=== PATIENT | female | born 1990 | race Caucasian/White ===

== ENCOUNTER 2017-10-29 19:06 | Inpatient (IN) | payer OTHER ==
[2017-10-29] MEDS ORDERED: LACTATED RINGERS 1,000 ML ONE (19:09)
[2017-10-29] MEDS ORDERED: PITOCin/NS 20 UNIT/1000ML DRIP 20,000 MILLIUNITS/1,000 ML BAG IV ONE (19:09)
[2017-10-29] MEDS ORDERED: SUBLIMAZE IV ONE (19:47)
[2017-10-29] MEDS ORDERED: SUBLIMAZE ONE (19:48)
[2017-10-29] MEDS: LACTATED RINGERS 1,000 ML IV SCH ×2 (19:56→21:19)
[2017-10-29] MEDS ORDERED: PITOCin/NS 20 UNIT/1000ML DRIP 20 UNITS/1,000 ML BAG IV SCH ×2 (20:00→21:00)
[2017-10-29 20:18] LABS: Hematocrit 30.3 % (30.3-42.9); Hemoglobin 9.9 gm/dl (10.1-14.3); Mean Corpuscular HGB Conc 33 % (30-34); Mean Corpuscular Volume 75 fl (79-97); Platelet Count 146 K/mm3 (140-440); Red Blood Count 4.06 M/mm3 (3.65-5.03); Red Cell Distribution Width 14.9 % (13.2-15.2)
[2017-10-29 20:19] LABS: Mean Corpuscular Hemoglobin 24 pg (28-32)
[2017-10-29] MEDS ORDERED: MINERAL OIL PO PRN (20:19)
[2017-10-29] MEDS ORDERED: ZOFRAN IV PRN (20:19)
[2017-10-29] MEDS ORDERED: BRETHINE IVP PRN (20:19)
[2017-10-29] MEDS ORDERED: ePHEDrine SULFATE IV PRN ×2 (20:19→21:17)
[2017-10-29] MEDS ORDERED: NARCAN 0.4 MG/1 ML IV PRN (20:19)
[2017-10-29] MEDS ORDERED: POLYCILLIN/NS 2 GM/100 ML 2 GM/100 ML BAG IV ONE (20:19)
[2017-10-29] MEDS ORDERED: BRETHINE SUB-Q PRN (20:19)
[2017-10-29] MEDS ORDERED: XYLOCAINE 2% INFILTRATI ONE (20:19)
[2017-10-29] MEDS ORDERED: SUBLIMAZE IV PRN (20:19)
[2017-10-29] MEDS ORDERED: LACTATED RINGERS 1,000 ML IV SCH (21:00)
[2017-10-29] MEDS ORDERED: PITOCin/NS 30 UNIT/500ML 30 UNITS/500 ML BAG IV SCH (21:00)
[2017-10-29] MEDS ORDERED: NARCAN 2 MG/2 ML IV PRN (21:17)
--- NOTE | 2017-10-29 21:49 | Anesthesia Day of Surgery ---
Anesthesia Day of Surgery - Day of Surgery Patient Examined: Yes Patient H&P Reviewed: Yes Patient is NPO: Yes
--- NOTE | 2017-10-29 21:49 | Anesthesia Consultation ---
Anesthesia Consult and Med Hx Date of service: 10/29/17 - Airway Anesthetic Teeth Evaluation: Good ROM Head & Neck: Adequate Mental/Hyoid Distance: Adequate Mallampati Class: Class II Intubation Access Assessment: Probably Good - Pulmonary Exam CTA: Yes - Cardiac Exam Cardiac Exam: RRR - Pre-Operative Health Status ASA Pre-Surgery Classification: ASA2 Proposed Anesthetic Plan: Epidural, Spinal - Pulmonary Hx Smoking: No Hx Asthma: No COPD: No Hx Pneumonia: No - Cardiovascular System Hx Hypertension: No - Central Nervous System Hx Seizures: No Hx Psychiatric Problems: No - Endocrine Hx Renal Disease: No Hx End Stage Renal Disease: No Hx Hypothyroidism: No Hx Hyperthyroidism: No - Hematic Hx Anemia: No Hx Sickle Cell Disease: No - Other Systems Hx Alcohol Use: No
[2017-10-29] MEDS ORDERED: fentaNYL-BUPIV 2 MCG/ML-0.125% 200 MCG/100 ML BAG EPIDURAL SCH (22:00)
--- NOTE | 2017-10-30 00:11 | History and Physical Report ---
History of Present Illness Date of examination: 10/30/17 Chief complaint: My water broke History of present illness: Pt is a 27 year old Somali female primigravida LEVY 11/01/17 at 39w5d who presents with rupture of membranes,contractions and advanced cervical dilation of 4 cm (she was 1 cm yesterday in the office). She denies vaginal bleeding. She has had care at [facility] since 32 wks when she initiated care complicated by late entry to care, anemia on iron twice daily, and GERD. She is GBS negative. Past History Past Medical History: GERD Past Surgical History: no surgical history Family/Genetic History: none Social history: no significant social history - Obstetrical History Expected Date of Delivery: 11/01/17 Actual Gestation: 39 Week(s) 5 Day(s) : 1 Medications and Allergies Allergies Allergy/AdvReac Type Severity Reaction Status Date / Time No Known Allergies Allergy Unverified 10/29/17 19:38 Home Medications Medication Instructions Recorded Confirmed Last Taken Type Pnv No.95/Ferrous Fum/Folic AC 1 tab PO DAILY 10/29/17 10/29/17 10/28/17 History [ Formula Tablet] 0900 Active Meds: Active Medications Ephedrine Sulfate (Ephedrine Sulfate) 10 mg IV Q2M PRN PRN Reason: Hypotension Ephedrine Sulfate (Ephedrine Sulfate) 10 mg IV Q2M PRN PRN Reason: Hypotension Fentanyl (Sublimaze) 100 mcg IV Q2H PRN PRN Reason: Labor Pain Lactated Ringer's (Lactated Ringers) 1,000 mls @ 125 mls/hr IV DIRECT ALEA Last Admin: 10/29/17 21:19 Dose: 125 mls/hr Oxytocin/Sodium Chloride (Pitocin/Ns 20 Unit/1000ml Drip) 20 units in 1,000 mls @ 125 mls/hr IV DIRECT ALEA Ampicillin Sodium (Ampicillin/Ns 1 Gm/50 Ml) 1 gm in 50 mls @ 100 mls/hr IV Q4H ALEA; Protocol Lactated Ringer's (Lactated Ringers) 1,000 mls @ 125 mls/hr IV DIRECT ALEA Oxytocin/Sodium Chloride (Pitocin/Ns 20 Unit/1000ml Drip) 20 units in 1,000 mls @ 125 mls/hr IV DIRECT ALEA Oxytocin/Sodium Chloride (Pitocin/Ns 30 Unit/500ml) 30 units in 500 mls @ 4 mls /hr IV TITR ALEA; Protocol Fentanyl/Bupivacaine/Sodium Chlor (Fentanyl-Bupiv 2 Mcg/Ml-0.125%) 200 mcg in 100 mls @ 12 mls/hr EPIDURAL TITR ALEA; Protocol Last Admin: 10/29/17 21:57 Dose: 12 mls/hr Mineral Oil (Mineral Oil) 30 ml PO QHS PRN PRN Reason: Constipation Naloxone HCl (Narcan 2 Mg/2 Ml) 0.2 mg IV Q5M PRN PRN Reason: Respiratory sedation Ondansetron HCl (Zofran) 4 mg IV Q8H PRN PRN Reason: Nausea And Vomiting Terbutaline Sulfate (Brethine) 0.25 mg SUB-Q ONCE PRN PRN Reason: Hyperstimulation/Hypertonicity Terbutaline Sulfate (Brethine) 0.25 mg IVP ONCE PRN PRN Reason: Hyperstimulation/Hypertonicity Review of Systems All systems: negative - Vital Signs Vital signs: Vital Signs Temp Resp 98.9 F 20 10/29/17 19:06 10/29/17 19:06 Temp Pulse Resp BP Pulse Ox 98.7 F 80 18 115/67 99 10/29/17 22:52 10/30/17 00:09 10/29/17 22:52 10/30/17 00:09 10/30/17 00:06 - Physical Exam Breasts: Positive: deferred Abdomen: Positive: soft (gravid ) Extremities: Positive: normal - Obstetrical FHR: category 2 Uterine Contraction Monitor Mode: External Cervical Dilatation: 10 Cervical Effacement Percentage: 100 station: 0 Uterine Contraction Pattern: Regular Uterine Tone Measurement Phase: Resting Uterine Contraction Intensity: Strong/Firm Results Result Diagrams: 10/29/17 19:00 Abnormal lab results 10/29/17 Range/Units 19:00 Hgb 9.9 L (10.1-14.3) gm/dl MCV 75 L (79-97) fl MCH 24 L (28-32) pg All other labs normal. Assessment and Plan A: IUP at 39w5d Rupture of membranes Second stage labor Late entry to care GERD GBS negative P: Admit to labor and delivery Routine intrapartum care Closely monitor maternal and status
[2017-10-30] MEDS ORDERED: AMPICILLIN/NS 1 GM/50 ML 1 GM/50 ML BAG IV SCH (00:21)
--- NOTE | 2017-10-30 02:04 | Procedure Note ---
OB Delivery Note - Delivery Date of Delivery: 10/30/17 Surgeon: MONA ROWLEY Estimated blood loss: other (400 mL) - Vaginal Delivery presentation: vertex Delivery position: OA Intrapartum events: PROM->1hr before delivery Delivery induction: none Delivery augmentation: pitocin Delivery monitor: external FHT, external uterine Route of delivery: Delivery placenta: spontaneous Episiotomy: none Delivery laceration: 2nd degree, other (left periclitoral, left vaginal ) Delivery repair: vicryl Anesthesia: epidural Delivery comments: Pt progressed to complete/complete/+2 and pushed to deliver a viable male over intact perineum via . Head delivered in LEXI position. Nuchal cord delivered through quickly followed by shoulders and body. bulb suctioned and placed on maternal abdomen. Cord clamped and cut and handed to nurse in attendance. Placenta delivered spontaneously (3VC, intact). Vagina and perineum explored. Second degree perineal laceration, left periclitoral laceration, left vaginal laceration were repaired in a standard fashion with 2- 0 Vicryl and 3-0 Vicryl. EBL 400 mL. Provider had to leave during repair to attend another delivery urgently. Lap count not correct after procedure. Pelvic X-ray ordered. - Infant A at 1 minute: 8 at 5 minutes: 9 Infant Gender: Male (3422g (7lb 9oz) @ 102 am)
[2017-10-30] MEDS ORDERED: BENADRYL PO PRN (03:23)
[2017-10-30] MEDS ORDERED: PHENERGAN PR PRN (03:23)
[2017-10-30] MEDS ORDERED: NORCO 5/325 PO PRN (03:23)
[2017-10-30] MEDS ORDERED: DERMOPLAST TP PRN (03:23)
[2017-10-30] MEDS ORDERED: PHENERGAN PO PRN (03:23)
[2017-10-30] MEDS ORDERED: ZOFRAN IV PRN (03:23)
[2017-10-30] MEDS ORDERED: DULCOLAX PR PRN (03:23)
[2017-10-30] MEDS ORDERED: PITOCin/NS 20 UNIT/1000ML DRIP 20 UNITS/1,000 ML BAG IV SCH (03:23)
[2017-10-30] MEDS ORDERED: LANSINOH TP PRN (03:23)
[2017-10-30] MEDS ORDERED: SODIUM CHLORIDE FLUSH SYRINGE 10 ML IV NR (03:23)
[2017-10-30] MEDS ORDERED: TUCKS PAD TP PRN (03:23)
[2017-10-30] MEDS ORDERED: MILK OF MAGNESIA PO PRN (03:23)
[2017-10-30] MEDS ORDERED: TYLENOL PO PRN (03:23)
--- NOTE | 2017-10-30 04:13 | XRay Report ---
FINAL REPORT PROCEDURE: XR PELVIS 1-2V TECHNIQUE: Pelvis radiographs, 2 views. HISTORY: s/p , incorrect lap count COMPARISON: No prior studies are available for comparison. FINDINGS: Fracture (s) and/or Dislocation(s): None . Joint space(s): Normal. Soft tissues: Normal. Bone mineralization: Normal. Foreign bodies: None. IMPRESSION: Normal Examination.
[2017-10-30] MEDS: MOTRIN PO SCH ×3 (06:03→22:02)
[2017-10-30] MEDS: LANSINOH TP PRN ×2 (06:07→22:35)
[2017-10-30] MEDS: FEOSOL PO SCH ×2 (10:04→22:02)
[2017-10-30 16:00] LABS: Hematocrit 27.7 % (30.3-42.9); Hemoglobin 9.2 gm/dl (10.1-14.3)
[2017-10-31] MEDS ORDERED: BOOSTRIX IM ONE (06:00)
[2017-10-31] MEDS ORDERED: M-M-R II VACCINE SUB-Q ONE (06:00)
[2017-10-31] MEDS: MOTRIN PO SCH ×3 (06:00→13:16)
--- NOTE | 2017-10-31 09:09 | Progress Note ---
Assessment and Plan A/P PPD 1 s/p no complaints micronor for cotnrol vss routine pp orders. d/c home tomorrow Subjective - Subjective Date of service: 10/31/17 Principal diagnosis: s/p Patient reports: appetite normal, voiding normally, pain well controlled, flatus , ambulating normally : doing well, nursing well Objective - Vital Signs Latest vital signs: Vital Signs Temp Pulse Resp BP 10/31/17 00:00 98.5 F 68 16 127/69 Intake and Output 10/30/17 10/31/17 10/31/17 23:59 07:59 15:59 Intake Total 300 Balance 300 Intake: Intake, Free Water 300 - Exam Breasts: Present: normal Cardiovascular: Present: Regular rate, Normal S1 Lungs: Present: Clear to auscultation, Normal air movement Abdomen: Present: normal appearance, soft, normal bowel sounds. Absent: distention, tenderness, guarding Vulva: both: normal Uterus: Present: normal, firm, fundal height below umbilicus. Absent: bogginess , tenderness Extremities: Present: normal Deep Tendon Reflex Grade: Normal +2 - Labs Labs: Abnormal lab results 10/30/17 Range/Units 15:41 Hgb 9.2 L (10.1-14.3) gm/dl Hct 27.7 L (30.3-42.9) %
--- NOTE | 2017-10-31 09:10 | Discharge Summary ---
Providers - Providers Date of Admission: 10/30/17 01:26 Date of discharge: 11/01/17 Attending physician: MONA ROWLEY 10/30/17 03:23 Consult to Piercing Artist [CONS] Routine Reason For Exam: assistance with , SNS Primary care physician: MONA ROWLEY Hospitalization Reason for admission: active labor Delivery: Episiotomy: none Laceration: none Incision: normal Other procedures: none complications: none Discharge diagnosis: IUP at term delivered [place] baby: male Condition at discharge: Good Disposition: DC-01 TO HOME OR SELFCARE Plan - Provider Discharge Summary Activity: routine, no sex for 6 weeks, no strenuous exercise Diet: routine Instructions: routine Additional instructions: [] Smoking cessation referral if applicable(refer to patient education folder for contact #) [] Refer to [facility] Booklet Call your doctor immediately for: * Fever > 100.5 * Heavy vaginal bleeding ( >1 pad per hour) * Severe persistent headache * Shortness of breath * Reddened, hot, painful area to leg or breast * Drainage or odor from incision. * Keep incision clean and dry at all times and follow doctor's instructions regarding bathing/showering - Follow up plan Follow up: MONA ROWLEY MD [Primary Care Provider] - 11/27/17
[2017-10-31] MEDS: FEOSOL PO SCH (10:09)
[2017-11-01] MEDS ORDERED: BOOSTRIX IM ONE (02:01)
[2017-11-01] MEDS: MOTRIN PO SCH ×2 (02:13→06:00)
[2017-11-01] MEDS: FEOSOL PO SCH (02:13)
[2017-11-01 10:06] VITALS: BP 113/69
== END 2017-11-01 14:10 | disposition home or self-care (01) | DRG 775 ==
LOC: TRG 19:06 → LD 19:08 → TRG 10-30 01:19 → LD 10-30 01:26 → OB 10-30 03:06
PROVIDERS: ADMIT Obstetrics & Gynecology; ATTEND Obstetrics & Gynecology
PROC: 10E0XZZ Delivery of Products of Conception, External Approach (ICD-10-PCS; principal; 2017-10-30)
PROC: 0KQM0ZZ Repair Perineum Muscle, Open Approach (ICD-10-PCS; 2017-10-30)
PROC: 0UQJXZZ Repair Clitoris, External Approach (ICD-10-PCS; 2017-10-30)
PROC: 3E0R3BZ Introduction of Anesthetic Agent into Spinal Canal, Percutaneous Approach (ICD-10-PCS; 2017-10-30)
PROC: 00HU33Z Insertion of Infusion Device into Spinal Canal, Percutaneous Approach (ICD-10-PCS; 2017-10-30)
PROC: 3E0234Z Introduction of Serum, Toxoid and Vaccine into Muscle, Percutaneous Approach (ICD-10-PCS; 2017-10-31)
DX: O69.81X0 Labor and delivery complicated by cord around neck, without compression, not applicable or unspecified (principal); O71.4 Obstetric high vaginal laceration alone; O99.02 Anemia complicating childbirth; D64.9 Anemia, unspecified; O99.62 Diseases of the digestive system complicating childbirth; K92.89 Other specified diseases of the digestive system; K21.9 Gastro-esophageal reflux disease without esophagitis; Z3A.39 39 weeks gestation of pregnancy; Z37.0 Single live birth
CPT/HCPCS: 36415; 72170; 85014; 85018; 85027; 86592; 86850; 86900; 86901; 88307; 90471; 90715; 99211; A6250; G0463; J0290; J2590; J3010; J7120

== ENCOUNTER 2019-08-10 08:06 | Inpatient (IN) | payer SELFPAY ==
[2019-08-10] MEDS ORDERED: NalbUPHINE 10 MG/1 ML INJ IV PRN (10:00)
[2019-08-10] MEDS ORDERED: fentaNYL 100 MCG/2 ML INJ IV PRN (10:00)
[2019-08-10] MEDS ORDERED: LACTATED RINGERS 1,000 ML IV SCH (10:00)
[2019-08-10] MEDS ORDERED: TERBUTALINE 1 MG/1 ML INJ SUB-Q PRN (10:00)
[2019-08-10] MEDS ORDERED: ONDANSETRON 4 MG/2 ML INJ IV PRN ×2 (10:00→15:21)
[2019-08-10] MEDS ORDERED: OXYTOCIN DRIP 30 UNITS/500 ML BAG IV SCH ×2 (10:00)
[2019-08-10] MEDS ORDERED: MINERAL OIL 30 ML ORAL LIQD PO PRN (10:00)
[2019-08-10] MEDS ORDERED: LIDOCAINE (2%) 20 MG/1 ML VIAL 20 ML MDV INFILTRATI NR (10:00)
[2019-08-10] MEDS ORDERED: BUTORPHANOL 2 MG/1 ML INJ IV PRN ×2 (10:00)
[2019-08-10] MEDS ORDERED: OXYTOCIN 20 UNIT/1000ML DRIP 20 UNITS/1,000 ML BAG IV SCH ×2 (10:00→15:21)
[2019-08-10] MEDS ORDERED: TERBUTALINE 1 MG/1 ML INJ IVP PRN (10:00)
[2019-08-10] MEDS ORDERED: ePHEDrine SULFATE 50 MG/1 ML INJ IV PRN ×2 (10:00→11:35)
[2019-08-10 10:23] LABS: Hematocrit 31.8 % (30.3-42.9); Hemoglobin 10.4 gm/dl (10.1-14.3); Mean Corpuscular HGB Conc 33 % (30-34); Mean Corpuscular Volume 73 fl (79-97); Platelet Count 166 K/mm3 (140-440); Red Blood Count 4.33 M/mm3 (3.65-5.03); Red Cell Distribution Width 15.3 % (13.2-15.2)
[2019-08-10] MEDS ORDERED: DEXMEDETOMIDINE 200 MCG/2 ML VIAL IV ONE (10:55)
[2019-08-10] MEDS ORDERED: NALOXONE 2 MG/2 ML INJ IV PRN (11:35)
--- NOTE | 2019-08-10 11:38 | Anesthesia Consultation ---
Anesthesia Consult and Med Hx Date of service: 08/10/19 - Airway Anesthetic Teeth Evaluation: Good ROM Head & Neck: Adequate Mental/Hyoid Distance: Adequate Mallampati Class: Class II Intubation Access Assessment: Probably Good - Pulmonary Exam CTA: Yes - Cardiac Exam Cardiac Exam: RRR - Pre-Operative Health Status ASA Pre-Surgery Classification: ASA2 Proposed Anesthetic Plan: Epidural - Pulmonary Hx Smoking: No Hx Asthma: No Hx Respiratory Symptoms: No SOB: No COPD: No Home Oxygen Therapy: No Hx Pneumonia: No Hx Sleep Apnea: No - Cardiovascular System Hx Hypertension: No Hx Coronary Artery Disease: No Hx Heart Attack/AMI: No Hx Angina: No Hx Percutaneous Transluminal Coronary Angioplasty (PTCA): No Hx Cardia Arrhythmia: No Hx Pacemaker: No Hx Internal Defibrillator: No Hx Valvular Heart Disease: No Hx Heart Murmur: No Hx Peripheral Vascular Disease: No - Central Nervous System Hx Neuromuscular Disorder: No Hx Seizures: No CVA: No Hx Back Pain: Yes Hx Psychiatric Problems: No - Gastrointestinal Hx Ulcer: No Hx Gastroesophageal Reflux Disease: No - Endocrine Hx Renal Disease: No Hx End Stage Renal Disease: No Hx Cirrhosis: No Hx Liver Disease: No Hx Insulin Dependent Diabetes: No Hx Non-Insulin Dependent Diabetes: No Hx Thyroid Disease: No Hx Hypothyroidism: No Hx Hyperthyroidism: No - Hematic Hx Anemia: No Hx Sickle Cell Disease: No - Other Systems Hx Alcohol Use: No Hx Substance Use: No Hx Cancer: No Hx Obesity: No
[2019-08-10] MEDS ORDERED: fentaNYL-BUPIV 2 MCG/ML-0.125% 200 MCG/100 ML BAG EPIDURAL SCH (12:00)
[2019-08-10] MEDS ORDERED: METHYLERGONOVINE MALEATE 0.2 MG/ML VIAL IM ONE (12:28)
--- NOTE | 2019-08-10 13:02 | History and Physical Report ---
History of Present Illness Date of examination: 08/10/19 Date of admission: 08/10/19 08:07 Chief complaint: contractions History of present illness: Patient is a 29-year-old female 2 para 1-0-0-1 LEVY 08/10/2019 at 40 weeks 0 days who presents with regular painful contractions and advanced cervical dilation of 6 cm. She has had limited care [facility] since transferring to care at 34 weeks that has been uncomplicated. She is GBS negative. Past History Past Medical History: no pertinent history Past Surgical History: no surgical history Family/Genetic History: none Social history: no significant social history - Obstetrical History Expected Date of Delivery: 08/10/19 Actual Gestation: 40 Week(s) 0 Day(s) : 2 Para: 1 Hx # Term Pregnancies: 1 Number of Pregnancies: 0 Spontaneous Abortions: 0 Induced : 0 Number of Living Children: 1 Medications and Allergies Allergies Allergy/AdvReac Type Severity Reaction Status Date / Time No Known Allergies Allergy Unverified 10/29/17 19:38 Home Medications Medication Instructions Recorded Confirmed Last Taken Type Pnv No.95/Ferrous Fum/Folic AC 1 tab PO DAILY 10/29/17 10/29/17 10/28/17 History [ Formula Tablet] 0900 Docusate Sodium [Colace] 100 mg PO BID PRN #30 capsule 10/31/17 Unknown Rx Ibuprofen [Motrin] 600 mg PO Q8H PRN #30 tablet 10/31/17 Unknown Rx Active Meds: Active Medications Butorphanol Tartrate (Stadol) 1 mg IV Q2H PRN PRN Reason: Labor Pain Butorphanol Tartrate (Stadol) 2 mg IV Q2H PRN PRN Reason: Pain , Severe (7-10) Ephedrine Sulfate (Ephedrine Sulfate) 10 mg IV Q2M PRN PRN Reason: Hypotension Fentanyl (Sublimaze) 100 mcg IV Q2H PRN PRN Reason: Labor Pain Oxytocin/Sodium Chloride (Pitocin/Ns 20 Unit/1000ml Drip) 20 units in 1,000 mls @ 125 mls/hr IV DIRECT ALEA Oxytocin/Sodium Chloride (Pitocin/Ns 30 Unit/500ml) 30 units in 500 mls @ 1 mls/hr IV TITR ALEA; Protocol Last Titration: 08/10/19 11:57 Dose: 4 milliunits/min, 4 mls/hr Documented by: Oxytocin/Sodium Chloride (Pitocin/Ns 30 Unit/500ml) 30 units in 500 mls @ 1 mls/hr IV TITR ALEA; Protocol Lactated Ringer's (Lactated Ringers) 1,000 mls @ 125 mls/hr IV DIRECT ALEA Fentanyl/Bupivacaine/Sodium Chlor (Fentanyl-Bupiv 2 Mcg/Ml-0.125%) 200 mcg in 100 mls @ 12 mls/hr EPIDURAL TITR ALEA; Protocol Lidocaine (Xylocaine 2%) 20 ml INFILTRATI ONCE NR Stop: 08/11/19 09:59 Last Admin: 08/10/19 12:37 Dose: 20 ml Documented by: Mineral Oil (Mineral Oil) 30 ml PO QHS PRN PRN Reason: Constipation Nalbuphine HCl (Nalbuphine) 10 mg IV Q2H PRN PRN Reason: Pain, Moderate (4-6) Naloxone HCl (Naloxone) 0.2 mg IV Q5M PRN PRN Reason: Respiratory sedation Ondansetron HCl (Zofran) 4 mg IV Q8H PRN PRN Reason: Nausea And Vomiting Terbutaline Sulfate (Brethine) 0.25 mg SUB-Q ONCE PRN PRN Reason: Hyperstimulation/Hypertonicity Terbutaline Sulfate (Brethine) 0.25 mg IVP ONCE PRN PRN Reason: Hyperstimulation/Hypertonicity Review of Systems All systems: negative - Vital Signs Vital signs: Vital Signs Pulse BP 83 110/69 08/10/19 09:30 08/10/19 09:30 Temp Pulse Resp BP Pulse Ox 97.7 F 80 18 128/79 100 08/10/19 09:33 08/10/19 12:56 08/10/19 09:33 08/10/19 12:56 08/10/19 12:45 - Physical Exam Breasts: Positive: deferred Abdomen: Positive: soft (gravid ) Genitourinary (Female): Positive: normal external genitalia Uterus: Positive: enlarged (gravid ) Extremities: Positive: normal - Obstetrical FHR: auscultation normal Uterine Contraction Monitor Mode: External Cervical Dilatation: 10 Cervical Effacement Percentage: 100 station: +2 Uterine Contraction Pattern: Regular Uterine Tone Measurement Phase: Resting Uterine Contraction Intensity: Strong/Firm Results Result Diagrams: 08/10/19 09:40 Abnormal lab results 08/10/19 Range/Units 09:40 MCV 73 L (79-97) fl MCH 24 L (28-32) pg RDW 15.3 H (13.2-15.2) % All other labs normal. Assessment and Plan A: IUP at 40w0d Second Stage Labor GBS Negative P: Admit to labor and delivery Routine intrapartum care Anticipate vaginal delivery
--- NOTE | 2019-08-10 13:05 | Procedure Note ---
OB Delivery Note - Delivery Date of Delivery: 08/10/19 Surgeon: MONA ROWLEY Estimated blood loss: 500cc - Vaginal Delivery presentation: vertex Delivery position: OA Intrapartum events: uterine atony Delivery induction: none Delivery monitor: external FHT, external uterine Route of delivery: Delivery placenta: spontaneous Delivery cord: nuchal cord (x 2 ), other (Body cord x 1 ) Episiotomy: none Delivery laceration: 2nd degree Delivery repair: vicryl Anesthesia: local, epidural Delivery comments: Patient progressed to complete/complete/+3 and pushed to deliver a viable female over intact perineum under epidural anesthesia via spontaneous vaginal delivery. Head delivered rapidly in SILVIO presentation. Nuchal cord x2 delivered through. Shoulders and body delivered with ease. Nuchal cord and body cord reduced at delivery. bulb suctioned at delivery and placed on maternal abdomen for bonding. Cord clamped and cut and handed to nurse in attendance. Placenta delivered spontaneously (intact). Uterus somewhat atonic. Methergine 0.2 mg administered intramuscularly. Uterine tone firm. Vagina and perineum explored. Second-degree perineal laceration repaired with 3-0 and 2-0 Vicryl in the standard fashion. Good hemostasis noted. EBL 500 mL. - A at 1 minute: 8 at 5 minutes: 9 Infant Gender: Female (3721g (8lb 3.2 oz) @ 1220 pm)
[2019-08-10] MEDS ORDERED: PROMETHAZINE 25 MG TAB PO PRN (15:21)
[2019-08-10] MEDS ORDERED: diphenhydrAMINE 25 MG CAP PO PRN (15:21)
[2019-08-10] MEDS ORDERED: WITCH HAZEL/ GLYCERIN PAD TP PRN (15:21)
[2019-08-10] MEDS ORDERED: LANOLIN/ZINC/DIMETHICONE (LANSINOH) 7 GM TP PRN ×2 (15:21)
[2019-08-10] MEDS ORDERED: PROMETHAZINE 25 MG RECT SUPP PR PRN (15:21)
[2019-08-10] MEDS ORDERED: HYDROcodone/ACETAMINOPHEN 5-325 MG TAB PO PRN (15:21)
[2019-08-10] MEDS ORDERED: MAGNESIUM HYDROXIDE (MOM) ORAL LIQD UDC PO PRN (15:21)
[2019-08-10] MEDS ORDERED: ACETAMINOPHEN 325 MG TAB PO PRN (15:21)
[2019-08-10] MEDS ORDERED: BENZOCAINE/MENTHOL 20/0.5% TOP SPRAY 56 GM TP PRN (15:21)
[2019-08-10] MEDS: IBUPROFEN 600 MG TAB PO SCH (16:55)
[2019-08-10] MEDS: FERROUS SULFATE 325 MG TAB PO SCH (21:29)
[2019-08-11] MEDS: IBUPROFEN 600 MG TAB PO SCH ×5 (00:07→23:08)
[2019-08-11 00:41] LABS: Hematocrit 28.3 % (30.3-42.9); Hemoglobin 9.5 gm/dl (10.1-14.3)
[2019-08-11] MEDS ORDERED: TETANUS,DIPH,PERTUSS(ACELL) VACCINE 0.5 ML SYRINGE IM ONE (06:00)
--- NOTE | 2019-08-11 07:01 | Post Anesthesia Evaluation ---
- Post Anesthesia Evaluation Patient Participated: Yes Airway Patent: Yes Stable Respiratory Function: Yes Nausea/Vomiting: No Temp > 96.8F: Yes Pain Manageable: Yes Adequeate Hydration: Yes Anesthesia Complications: No Block Receding Appropriately: Yes Patient on Ventilator: No
--- NOTE | 2019-08-11 08:01 | Progress Note ---
Assessment and Plan A/P PPD1 s/p routine PP care acute anemia 10-9 hemoglobin drop Subjective - Subjective Date of service: 08/11/19 Principal diagnosis: s/p Patient reports: appetite normal, voiding normally, pain well controlled, flatus, ambulating normally : doing well Objective - Vital Signs Latest vital signs: Vital Signs Temp Pulse Resp BP BP Pulse Ox 08/11/19 01:43 97.8 F 20 119/78 08/10/19 21:04 98.2 F 70 18 127/81 99 08/10/19 15:00 98.3 F 82 18 134/76 99 08/10/19 14:22 97.6 F 14 100 08/10/19 14:11 88 129/79 08/10/19 13:56 78 129/79 08/10/19 13:26 80 130/66 08/10/19 13:12 83 122/65 08/10/19 12:56 80 128/79 08/10/19 12:45 88 100 08/10/19 12:41 93 H 130/77 90 08/10/19 12:40 84 100 08/10/19 12:35 82 100 08/10/19 12:30 82 100 08/10/19 12:26 85 118/70 08/10/19 12:25 89 100 08/10/19 12:20 95 H 99 08/10/19 12:17 104 H 90 08/10/19 12:15 92 H 100 08/10/19 12:12 85 109/63 08/10/19 12:10 84 100 08/10/19 12:05 88 100 08/10/19 12:00 87 98 08/10/19 11:57 87 107/66 08/10/19 11:55 83 97 08/10/19 11:50 84 98 08/10/19 11:45 79 97 08/10/19 11:42 81 100/59 08/10/19 11:40 81 97 08/10/19 11:35 82 97 08/10/19 11:30 84 98 08/10/19 11:25 92 H 99 08/10/19 11:21 78 118/68 94 08/10/19 11:19 86 99 08/10/19 11:16 82 119/58 08/10/19 11:15 81 132/66 100 08/10/19 11:14 90 90 08/10/19 11:10 86 127/70 08/10/19 11:09 88 98 08/10/19 11:05 83 131/65 100 08/10/19 11:00 86 128/67 100 08/10/19 10:55 86 130/70 100 08/10/19 10:50 84 100 08/10/19 10:36 81 126/74 08/10/19 10:13 82 138/82 08/10/19 09:33 97.7 F 83 18 110/69 08/10/19 09:30 83 110/69 Intake and Output 08/10/19 08/10/19 08/11/19 15:59 23:59 07:59 Intake Total 0.517 240 Output Total 100 1800 Balance -99.483 -1560 Intake: IV 0.517 PITOCin/NS 30 UNIT/500ML 0.517 30 units In 500 ml @ 1 MILLIUNITS/MIN 1 mls/hr IV TITR ALEA Rx#:[id number] Oral 240 Output: Urine 100 1800 Indwelling Catheter 100 Void 1800 Other: Total, Intake Amount 240 Total, Output Amount 100 900 # Voids Void 2 Weight 92.079 kg Estimated Blood Loss 500 - Exam Breasts: Present: deferred Cardiovascular: Present: Regular rate, Normal S1 Lungs: Present: Clear to auscultation, Normal air movement Abdomen: Present: normal appearance, soft, normal bowel sounds. Absent: distention, tenderness, guarding Vulva: both: normal Uterus: Present: normal, firm, fundal height above umbilicus. Absent: bogginess, tenderness Extremities: Present: normal Deep Tendon Reflex Grade: Normal +2 Incision: Present: normal - Labs Labs: Abnormal lab results 08/10/19 08/11/19 Range/Units 09:40 00:32 Hgb 9.5 L (10.1-14.3) gm/dl Hct 28.3 L (30.3-42.9) % MCV 73 L (79-97) fl MCH 24 L (28-32) pg RDW 15.3 H (13.2-15.2) %
[2019-08-11] MEDS ORDERED: PRENATAL VIT27-FE FUMARATE-FOLIC ACID VIT TAB PO SCH (10:00)
[2019-08-11] MEDS: FERROUS SULFATE 325 MG TAB PO SCH ×2 (10:29→22:23)
[2019-08-11] MEDS ORDERED: MEASLES, MUMPS & RUBELLA 12,500 UNIT/0.5 ML VACCINE SUB-Q ONE (13:06)
[2019-08-12] MEDS: IBUPROFEN 600 MG TAB PO SCH (06:13)
--- NOTE | 2019-08-12 08:17 | Progress Note ---
Assessment and Plan A: PPD2 s/p acute anemia 10-9 hemoglobin drop Vital signs stable P: Ferrous sulfate supplementation Discharge to home today Subjective - Subjective Date of service: 08/12/19 Principal diagnosis: s/p Interval history: PPD2 s/p Patient reports: appetite normal, voiding normally, pain well controlled, ambulating normally Colp: doing well, nursing well Objective - Vital Signs Latest vital signs: Vital Signs Temp Pulse Resp BP Pulse Ox 08/11/19 23:46 98.5 F 70 20 120/78 100 08/11/19 16:59 98.4 F 62 18 122/79 100 Intake and Output 08/11/19 08/12/19 08/12/19 23:59 07:59 15:59 Other: Voiding Method Toilet - Exam Lungs: Present: Normal air movement Abdomen: Present: soft Uterus: Present: firm, fundal height below umbilicus. Absent: bogginess Extremities: Present: normal
--- NOTE | 2019-08-12 08:20 | Discharge Summary ---
Providers - Providers Date of Admission: 08/10/19 08:07 Date of discharge: 08/12/19 Attending physician: SUMEET KNAPP Primary care physician: SUMEET KNAPP Hospitalization Reason for admission: active labor Delivery: Episiotomy: none Laceration: 2nd degree complications: perineal laceration, uterine atony (resolved with Methergine and Pitocin) Discharge diagnosis: IUP at term delivered Hospital course: Pt arrived in active labor and progressed to . course uncomplicated. Condition at discharge: Good Disposition: DC-01 TO HOME OR SELFCARE Plan - Provider Discharge Summary Activity: routine, no sex for 6 weeks, no heavy lifting 4 weeks, no strenuous exercise Diet: routine Instructions: routine Additional instructions: [] Smoking cessation referral if applicable(refer to patient education folder for contact #) [] Refer to [facility] Booklet Call your doctor immediately for: * Fever > 100.5 * Heavy vaginal bleeding ( >1 pad per hour) * Severe persistent headache * Shortness of breath * Reddened, hot, painful area to leg or breast * Drainage or odor from incision. * Keep incision clean and dry at all times and follow doctor's instructions regarding bathing/showering - Follow up plan Follow up: ADRY FLORES CNM [Advanced Practice Nurse] - 14 Days (Please call [facility] to schedule appointment.) Forms: [facility] Discharge Summary
[2019-08-12 10:14] VITALS: BP 119/76
== END 2019-08-12 12:30 | disposition home or self-care (01) | DRG 807 ==
LOC: TRG 08:06 → LD 08:06 → TRG 08:07 → LD 08:07 → OB 15:19
PROVIDERS: ADMIT Obstetrics & Gynecology; ATTEND Obstetrics & Gynecology
PROC: 10E0XZZ Delivery of Products of Conception, External Approach (ICD-10-PCS; principal; 2019-08-10)
PROC: 0KQM0ZZ Repair Perineum Muscle, Open Approach (ICD-10-PCS; 2019-08-10)
PROC: 3E0R3BZ Introduction of Anesthetic Agent into Spinal Canal, Percutaneous Approach (ICD-10-PCS; 2019-08-10)
PROC: 00HU33Z Insertion of Infusion Device into Spinal Canal, Percutaneous Approach (ICD-10-PCS; 2019-08-10)
PROC: 3E0234Z Introduction of Serum, Toxoid and Vaccine into Muscle, Percutaneous Approach (ICD-10-PCS; 2019-08-11)
PROC: 3E0134Z Introduction of Serum, Toxoid and Vaccine into Subcutaneous Tissue, Percutaneous Approach (ICD-10-PCS; 2019-08-11)
DX: O62.2 Other uterine inertia (principal); Z37.0 Single live birth; O69.81X0 Labor and delivery complicated by cord around neck, without compression, not applicable or unspecified; Z3A.40 40 weeks gestation of pregnancy; Z23 Encounter for immunization; O70.1 Second degree perineal laceration during delivery; D64.9 Anemia, unspecified; O99.03 Anemia complicating the puerperium
CPT/HCPCS: 36415; 85014; 85018; 85027; 86850; 86900; 86901; G0378; A6250; J2210; J2590; J3010; J3490; J7120